=== PATIENT | female | born 1990 | race Caucasian/White ===

== ENCOUNTER 2022-01-31 15:24 | Outpatient (CLI) | payer BC | END 2022-01-31 15:25 | disposition home or self-care (01) | LOC: TBSIIMAG 15:24 | PROVIDERS: ATTEND Neurological Surgery | DX: M51.15 Intervertebral disc disorders with radiculopathy, thoracolumbar region (principal); M51.14 Intervertebral disc disorders with radiculopathy, thoracic region | CPT/HCPCS: 72148 ==